=== PATIENT | male | born 1970 | race Hispanic/Latino ===

== ENCOUNTER 2018-01-18 23:14 | Emergency (ER) | payer BC, OTHER ==
[2018-01-18 23:14] VITALS: BMI 25.7
[2018-01-18 23:21] VITALS: BP 133/84; PULSE 77; RESP 16; TEMP 97.8; O2SAT 97
== END 2018-01-19 00:31 | disposition left against medical advice (07) ==
LOC: H.ER 23:14
DX: Z02.89 Encounter for other administrative examinations (principal)